=== PATIENT | female | born 1985 | race Two or more races ===

== ENCOUNTER 2017-12-22 21:40 | Inpatient (IN) | payer SELFPAY ==
[2017-12-22 22:09] LABS: BILIRUBIN,URINE NEGATIVE (NEG); CLARITY,URINE CLEAR; COLOR,URINE AMBER; GLUCOSE,URINE NEGATIVE (NEG); NITRITE,URINE NEGATIVE (NEG); PH,URINE 6.5; PROTEIN,URINE NEGATIVE (NEG-TRACE); UROBILINOGEN,URINE 0.2 mg/dL (0.2 mg/dL)
[2017-12-22 22:14] LABS: BARBITURATES NEG (NEG); BENZODIAZEPINES NEG (NEG); CANNABINOIDS NEG (NEG); COCAINE NEG (NEG); METHADONE NEG (NEG); OPIATES NEG (NEG); PHENCYCLIDINE NEG (NEG)
[2017-12-22 22:19] LABS: BACTERIA,URINE 0 /HPF (0-FEW); SQUAMOUS EPITHELIAL CELL,UR MOD /LPF
[2017-12-22 22:20] LABS: AMPHETAMINE/METHAMPHETAMINE NEG (NEG); ETHANOL, URINE NEG (NEG)
[2017-12-23] MEDS: IV RINGERS,LACTATED 1000ML 1,000 ML IV ×2 (01:59→06:00)
[2017-12-23] MEDS ORDERED: IV RINGERS,LACTATED 1000ML 1,000 ML IV (05:20)
[2017-12-23] MEDS ORDERED: BUTORPHANOL 2 MG/ML VIAL. IV (05:30)
[2017-12-23] MEDS ORDERED: TERBUTALINE 1 MG/ML VIAL. SQ (05:30)
[2017-12-23] MEDS ORDERED: fentaNYL PF VIAL 100 MCG/2 ML VIAL IV (05:30)
[2017-12-23] MEDS ORDERED: ACETAMINOPHEN 325 MG TABLET. PO ×2 (05:30→07:45)
[2017-12-23] MEDS ORDERED: LIDOCAINE 1% PF 30 ML VIAL. INJ (05:30)
[2017-12-23] MEDS: ONDANSETRON PF 4 MG/2 ML VIAL. IV (05:31)
[2017-12-23] MEDS: BUTORPHANOL 2 MG/ML VIAL. IV (05:32)
[2017-12-23 05:59] LABS: HEMATOCRIT 39.1 % (36.0-47.0); HEMOGLOBIN 12.8 g/dL (12.0-15.5); MEAN CORPUSCULAR HEMOGLOBIN 27 pg (25-35); MEAN CORPUSCULAR HGB CONC 33 g/dL (31-37); MEAN CORPUSCULAR VOLUME 84 fL (79-100); PLATELET COUNT 212 x10^3/uL (140-400); RED BLOOD COUNT 4.68 x10^6/uL (3.50-5.40); RED CELL DISTRIBUTION WIDTH 14.4 % (11.5-14.5); WHITE BLOOD COUNT 15.2 x10^3/uL (4.0-11.0)
[2017-12-23] MEDS ORDERED: MAG HYDROX/ALUMINUM HYD/SIMETH 30 ML ORAL.SUSP PO (07:45)
[2017-12-23] MEDS ORDERED: MMR per PROTOCOL. MC (07:45)
[2017-12-23] MEDS ORDERED: SIMETHICONE 80 MG TAB.CHEW PO (07:45)
[2017-12-23] MEDS ORDERED: HYDROCORTISONE 1% TOPICAL OINTMENT 30GM TUBE. TP (07:45)
[2017-12-23] MEDS ORDERED: diphenhydrAMINE HCL 25 MG CAPSULE PO (07:45)
[2017-12-23] MEDS ORDERED: PHENYLEPH/MINERAL OIL/PETROLAT RECTAL OINTMENT 28GM TUBE. RC (07:45)
[2017-12-23] MEDS ORDERED: OXYTOCIN 30 UNIT/500 ML PREMIX 500 ML IV (07:45)
[2017-12-23] MEDS ORDERED: oxyCODONE/APAP 5/325 1 TAB TABLET PO (07:45)
[2017-12-23] MEDS ORDERED: DOCUSATE SODIUM 100 MG CAPSULE. PO (07:45)
[2017-12-23] MEDS ORDERED: MAGNESIUM HYDROXIDE 2,400 MG/30 ML ORAL.SUSP. PO (07:45)
[2017-12-23] MEDS ORDERED: 0.9 % SODIUM CHLORIDE 10 ML DISP.SYRIN. IV (07:45)
[2017-12-23] MEDS ORDERED: ZOLPIDEM 5 MG TABLET. PO (07:45)
[2017-12-23] MEDS: IBUPROFEN 800 MG TABLET. PO (09:23)
[2017-12-23] MEDS: BENZOCAINE 20% TOPICAL AEROSOL SPRAY 57GM CAN. TP (09:23)
[2017-12-23] MEDS: OXYTOCIN 30 UNIT/500 ML PREMIX 500 ML IV (09:24)
[2017-12-24] MEDS: IBUPROFEN 800 MG TABLET. PO (04:19)
[2017-12-24 05:03] LABS: ADD MAN DIFF? NO
[2017-12-24 05:29] LABS: BASO % 0 % (0-3); EOS # 0.3 x10^3/uL (0.0-0.7); EOS % 3 % (0-3); HEMATOCRIT 34.4 % (36.0-47.0); HEMOGLOBIN 11.2 g/dL (12.0-15.5); LYMPH # 2.3 x10^3/uL (1.0-4.8); LYMPH % 19 % (24-48); MEAN CORPUSCULAR HEMOGLOBIN 27 pg (25-35); MEAN CORPUSCULAR HGB CONC 33 g/dL (31-37); MEAN CORPUSCULAR VOLUME 83 fL (79-100); MONO # 0.9 x10^3/uL (0.0-1.1); MONO % 8 % (0-9); NEUT # 8.6 x10^3uL (1.8-7.7); NEUT % 71 % (31-73); PLATELET COUNT 173 x10^3/uL (140-400); RED BLOOD COUNT 4.15 x10^6/uL (3.50-5.40); RED CELL DISTRIBUTION WIDTH 14.9 % (11.5-14.5); WHITE BLOOD COUNT 12.2 x10^3/uL (4.0-11.0)
[2017-12-24] MEDS ORDERED: FERROUS SULFATE 325 MG TABLET. PO (08:00)
[2017-12-24] MEDS ORDERED: fentaNYL PF VIAL 100 MCG/2 ML VIAL (08:15)
[2017-12-24] MEDS ORDERED: ePHEDrine PF IN SALINE 50 MG/5 ML DISP.SYRIN IV (08:35)
[2017-12-24] MEDS ORDERED: PHENYLEPHRINE in 0.9% NACL PF 1 MG/10 ML SYRINGE. IV (08:35)
[2017-12-24] MEDS ORDERED: METOCLOPRAMIDE HCL 10 MG/2 ML VIAL. (08:47)
[2017-12-24] MEDS ORDERED: FAMOTIDINE 20 MG/2 ML VIAL (08:47)
[2017-12-24] MEDS ORDERED: ONDANSETRON PF 4 MG/2 ML VIAL. (08:47)
[2017-12-25 23:10] LABS: RPR Non Reactive (Non Reactive)
== END 2017-12-25 15:19 | disposition home or self-care (01) | DRG 775 ==
LOC: 3 SO LND 21:40 → 3 NORTH 12-23 10:34
PROC: 10E0XZZ Delivery of Products of Conception, External Approach (ICD-10-PCS; principal; 2017-12-23)
DX: O80 Encounter for full-term uncomplicated delivery (principal); Z37.0 Single live birth; Z3A.40 40 weeks gestation of pregnancy
CPT/HCPCS: 36415; 76815; 80307; 81001; 85025; 85027; 86593; 86850; 86900; 86901; 87086; G0378; G0379; J2370; J2405; J2590; J2765; J3010; J7120; S0028

== ENCOUNTER → 2017-12-22 | Emergency (ER) | payer SELFPAY | LOC: ER 21:01 → 3 SO LND 21:36 | DX: O20.9 Hemorrhage in early pregnancy, unspecified (principal); Z3A.18 18 weeks gestation of pregnancy ==